=== PATIENT | female | born 1960 | race African-American/Black ===

== ENCOUNTER 2021-06-30 00:14 | Emergency (ER) | payer OTHER ==
[~2021-06-30] VITALS: Ht 167.6 cm; Wt 80.0 kg
[~2021-06-30 00:14] MED LIST: ASA; B/P MEDS
[2021-06-30] MEDS ORDERED: MORPHINE SULFATE 4 MG/ML CPJ (NOT FOR IM USE) IV STA (00:26)
[2021-06-30] MEDS ORDERED: ASPIRIN 81MG TABLET PO ONE (00:30)
[2021-06-30] MEDS: NITROGLYCERIN 0.4MG TABLET SL SL PRN ×3 (00:58→02:15)
[2021-06-30 01:27] LABS: CHLORIDE 110 mEq/L (98-107)
[2021-06-30 01:32] LABS: BASOPHILS % 0.4 % (0.0-2.0); EOSINOPHILS % 1.7 % (0.0-5.0); HEMATOCRIT. 40.9 % (36.0-48.0); HEMOGLOBIN. 13.1 g/dL (12.0-16.0); MEAN CORPUSCULAR HEMOGLOBIN 27.5 pg (28.0-32.0); MEAN CORPUSCULAR VOLUME 85.5 fL (81.0-99.0); MEAN PLATELET VOLUME 10.1 fl (7.4-10.4); MONOCYTES % 6.8 % (2.0-8.0); NEUTROPHILS % 68.1 % (40.0-76.0); PLATELET 169 x1000/uL (130-400); RED BLOOD CELL COUNT 4.78 mill/uL (4.2-5.4)
[2021-06-30] MEDS ORDERED: MORPHINE SULFATE 4 MG/ML CPJ (NOT FOR IM USE) IV ONE (02:30)
[2021-06-30 03:59] VITALS: BP 168/87
== END 2021-06-30 04:13 | disposition short-term general hospital (02) ==
LOC: ER 00:14
DX: R07.89 Other chest pain (principal); I11.0 Hypertensive heart disease with heart failure; I50.9 Heart failure, unspecified; Z88.0 Allergy status to penicillin; Z20.822 Contact with and (suspected) exposure to COVID-19
CPT/HCPCS: 36415; 71045; 80053; 83690; 83880; 84484; 85025; 87426; 96374; 96376; 99285; J2270

== ENCOUNTER 2021-07-22 14:40 | Inpatient (IN) | payer OTHER, MEDICAID ==
[~2021-07-22] VITALS: Ht 162.6 cm; Wt 73.5 kg
[2021-07-22] MEDS ORDERED: ONDANSETRON HCL 4MG/2ML INJ IV STA ×2 (14:46→17:48)
[2021-07-22] MEDS ORDERED: MORPHINE SULFATE 4 MG/ML CPJ (NOT FOR IM USE) IV STA ×2 (14:46→17:48)
[2021-07-22] MEDS ORDERED: HEPARIN 25,000 UNITS PREMIX 250 ML IV SCH (15:15)
[2021-07-22] MEDS ORDERED: HEPARIN 5000 UNITS/ML VIAL IV ONE (15:15)
[2021-07-22 15:38] LABS: BASOPHILS % 0.9 % (0.0-2.0); HEMATOCRIT. 32.1 % (36.0-48.0); HEMOGLOBIN. 10.4 g/dL (12.0-16.0); LYMPHOCYTES % 24.5 % (20.0-50.0); MEAN CORPUSCULAR HEMOGLOBIN 27.8 pg (28.0-32.0); MEAN CORPUSCULAR VOLUME 85.7 fL (81.0-99.0); MEAN PLATELET VOLUME 9.1 fl (7.4-10.4); MONOCYTES % 7.3 % (2.0-8.0); NEUTROPHILS % 64.3 % (40.0-76.0); PLATELET 411 x1000/uL (130-400); RED BLOOD CELL COUNT 3.75 mill/uL (4.2-5.4); RED CELL DISTRIBUTION WIDTH 15.4 % (11.6-14.6)
[2021-07-22 15:40] LABS: CHLORIDE 104 mEq/L (98-107)
[2021-07-22 15:47] LABS: INR 1.1; PARTIAL THROMBOPLASTIN TIME 23.1 sec (23.4-31.0); PROTHROMBIN TIME 11.4 sec (9.6-11.0)
[2021-07-22] MEDS ORDERED: FUROSEMIDE 20MG/2ML VIAL IVP ONE (16:00)
[2021-07-22] MEDS ORDERED: HEPARIN 5000 UNITS/ML VIAL IV PRN ×2 (16:30)
[2021-07-22] MEDS ORDERED: HEPARIN 5000 UNITS/ML VIAL IV SCH (16:30)
[2021-07-22] MEDS ORDERED: HEPARIN 25,000 UNITS PREMIX 250 ML IV PRN (16:30)
[2021-07-22] MEDS ORDERED: KETOROLAC 15MG/ML VIAL IV ONE (17:30)
[2021-07-22] MEDS ORDERED: ONDANSETRON HCL 4MG/2ML INJ IV PRN (20:15)
[2021-07-22] MEDS ORDERED: ACETAMINOPHEN 325MG TABLET PO PRN (20:15)
[2021-07-22] MEDS ORDERED: CLONIDINE 0.1MG TABLET PO PRN (20:15)
[2021-07-22] MEDS ORDERED: IPRATROPIUM/ALBUTEROL 0.5-3(2.5)MG/3ML NEB HHN PRN (20:15)
[2021-07-22] MEDS ORDERED: DOCUSATE SODIUM 100MG CAPSULE PO PRN (20:15)
[2021-07-22 21:30] VITALS: BP 136/79
[2021-07-22 22:30] VITALS: BP 146/78
[2021-07-22] MEDS: HYDROCODONE/ACETAMINOPHEN 5/325MG TABLET PO PRN (23:27)
[2021-07-22 23:30] VITALS: BP 145/78
[2021-07-23] VITALS (41 sets, daily range): BP systolic 97–157; BP diastolic 40–92
[2021-07-23] MEDS ORDERED: HEPARIN 25,000 UNITS PREMIX 250 ML IV SCH (00:45)
[2021-07-23 06:08] LABS: BASOPHILS % 0.9 % (0.0-2.0); EOSINOPHILS % 4.8 % (0.0-5.0); HEMATOCRIT. 32.3 % (36.0-48.0); HEMOGLOBIN. 10.5 g/dL (12.0-16.0); LYMPHOCYTES % 32.7 % (20.0-50.0); MEAN CORPUSCULAR VOLUME 85.5 fL (81.0-99.0); MEAN PLATELET VOLUME 9.1 fl (7.4-10.4); MONOCYTES % 10.6 % (2.0-8.0); PLATELET 313 x1000/uL (130-400); RED BLOOD CELL COUNT 3.77 mill/uL (4.2-5.4); RED CELL DISTRIBUTION WIDTH 14.7 % (11.6-14.6)
[2021-07-23 06:42] LABS: CHLORIDE 106 mEq/L (98-107)
[2021-07-23 06:56] LABS: PHOSPHORUS 4.3 mg/dL (2.5-4.9)
[2021-07-23 06:57] LABS: LDL CHOLESTEROL 72 mg/dL (5-100)
[2021-07-23 06:58] LABS: HDL CHOLESTEROL 34 mg/dL (40-59)
[2021-07-23 07:03] LABS: T4 FREE 0.97 ng/dL (0.76-1.46)
[2021-07-23] MEDS: OMEPRAZOLE 20MG CAPSULE EXTENDED RELEASE PO SCH (07:51)
[2021-07-23] MEDS: HYDROCODONE/ACETAMINOPHEN 5/325MG TABLET PO PRN ×3 (07:51→20:51)
[2021-07-23] MEDS ORDERED: MORPHINE SULFATE 2 MG/ML CPJ (NOT FOR IM USE) IV PRN (08:30)
[2021-07-23] MEDS ORDERED: NALOXONE HCL 0.4MG/ML VIAL IV PRN (08:45)
[2021-07-23] MEDS: ASPIRIN 81MG EC TABLET PO SCH (10:12)
[2021-07-23] MEDS: KETOROLAC 30MG/ML VIAL IV SCH ×2 (10:12→17:54)
[2021-07-23] MEDS: ENOXAPARIN 40MG/0.4ML SYR SUBCUT SCH (12:16)
[2021-07-23] MEDS ORDERED: FLUCONAZOLE 150MG TABLET PO NR (18:00)
[2021-07-23] MEDS: COLCHICINE 0.6MG TABLET PO SCH (20:46)
[2021-07-23] MEDS: ATORVASTATIN CALCIUM 40MG TABLET PO SCH (20:46)
[2021-07-23] MEDS: MAGNESIUM/ALUMINUM HYDROXIDE/SIMETHICONE 30ML UDC PO PRN ×2 (21:17→21:20)
[2021-07-24] VITALS (17 sets, daily range): BP systolic 124–157; BP diastolic 68–100
[2021-07-24] MEDS: KETOROLAC 30MG/ML VIAL IV SCH ×3 (01:35→18:08)
[2021-07-24] MEDS: HYDROCODONE/ACETAMINOPHEN 5/325MG TABLET PO PRN ×2 (05:09→20:31)
[2021-07-24 06:04] LABS: BASOPHILS % 0.7 % (0.0-2.0); EOSINOPHILS % 4.8 % (0.0-5.0); HEMATOCRIT. 32.8 % (36.0-48.0); HEMOGLOBIN. 10.4 g/dL (12.0-16.0); LYMPHOCYTES % 19.5 % (20.0-50.0); MEAN CORPUSCULAR HEMOGLOBIN 27.5 pg (28.0-32.0); MEAN CORPUSCULAR VOLUME 86.7 fL (81.0-99.0); MEAN PLATELET VOLUME 9.4 fl (7.4-10.4); MONOCYTES % 7.2 % (2.0-8.0); NEUTROPHILS % 67.8 % (40.0-76.0); PLATELET 303 x1000/uL (130-400); RED BLOOD CELL COUNT 3.79 mill/uL (4.2-5.4); RED CELL DISTRIBUTION WIDTH 15.1 % (11.6-14.6)
[2021-07-24 06:09] LABS: CHLORIDE 105 mEq/L (98-107)
[2021-07-24 06:16] LABS: PHOSPHORUS 3.7 mg/dL (2.5-4.9)
[2021-07-24] MEDS: OMEPRAZOLE 20MG CAPSULE EXTENDED RELEASE PO SCH (08:36)
[2021-07-24] MEDS: ASPIRIN 81MG EC TABLET PO SCH (08:36)
[2021-07-24] MEDS: COLCHICINE 0.6MG TABLET PO SCH ×2 (08:36→20:29)
[2021-07-24] MEDS: ENOXAPARIN 40MG/0.4ML SYR SUBCUT SCH (12:18)
[2021-07-24] MEDS ORDERED: LORA10TA7 PO (14:32)
[2021-07-24] MEDS ORDERED: HYDR-4001 PO (14:32)
[2021-07-24] MEDS ORDERED: CARV25TA47 PO (14:32)
[2021-07-24] MEDS ORDERED: CLOP75TA33 PO (14:32)
[2021-07-24] MEDS ORDERED: ASPI-1497 PO (14:32)
[2021-07-24] MEDS ORDERED: MULT-379 PO (14:32)
[2021-07-24] MEDS ORDERED: ZINC50CA2 PO (14:32)
[2021-07-24] MEDS ORDERED: EMPA10TA PO (14:32)
[2021-07-24] MEDS ORDERED: ROSU20TA2 PO (14:32)
[2021-07-24] MEDS ORDERED: CHOL100046 (14:32)
[2021-07-24] MEDS: ATORVASTATIN CALCIUM 40MG TABLET PO SCH (20:29)
[2021-07-25] VITALS (8 sets, daily range): BP systolic 127–159; BP diastolic 70–104
[2021-07-25] MEDS: OMEPRAZOLE 20MG CAPSULE EXTENDED RELEASE PO SCH (06:01)
[2021-07-25] MEDS: HYDROCODONE/ACETAMINOPHEN 5/325MG TABLET PO PRN ×2 (07:10→11:18)
[2021-07-25] MEDS ORDERED: OMEP20CA14 PO (08:59)
[2021-07-25] MEDS: COLCHICINE 0.6MG TABLET PO SCH (09:13)
[2021-07-25] MEDS: ASPIRIN 81MG EC TABLET PO SCH (09:14)
[2021-07-25] MEDS ORDERED: COLC0.6C3 MT (10:18)
[2021-07-25] MEDS: ENOXAPARIN 40MG/0.4ML SYR SUBCUT SCH (11:19)
== END 2021-07-25 15:25 | disposition home or self-care (01) | DRG 314 ==
LOC: ER 14:48 → UNDOADMIN 16:18 → CVICU 16:18 → EDBEDREQSVC 16:22 → EDBEDREQ 16:22 → EDBEDREQTM 16:22 → ENRESERV 19:03 → 3WST 07-24 10:08
PROVIDERS: ADMIT Internal Medicine; ATTEND Internal Medicine
DX: I24.1 Dressler's syndrome (principal); I50.33 Acute on chronic diastolic (congestive) heart failure; E44.0 Moderate protein-calorie malnutrition; I11.0 Hypertensive heart disease with heart failure; I25.10 Atherosclerotic heart disease of native coronary artery without angina pectoris; D64.9 Anemia, unspecified; E78.5 Hyperlipidemia, unspecified; Z20.822 Contact with and (suspected) exposure to COVID-19; R73.9 Hyperglycemia, unspecified; Z95.1 Presence of aortocoronary bypass graft; Z82.49 Family history of ischemic heart disease and other diseases of the circulatory system; Z88.0 Allergy status to penicillin; Z68.27 Body mass index [BMI] 27.0-27.9, adult
CPT/HCPCS: 36415; 71045; 80048; 80053; 80061; 80076; 83735; 83880; 84100; 84145; 84439; 84443; 84484; 85025; 87426; 93005; 93306; 93970; 99291; J1644; J1650; J1885; J1940; J2270; J2405

== ENCOUNTER 2021-08-23 23:56 | Emergency (ER) | payer OTHER, MEDICAID ==
[~2021-08-23] VITALS: Ht 167.6 cm; Wt 75.0 kg
[~2021-08-23 23:56] MED LIST changes: -ASA; +ASPI-1497 PO; -B/P MEDS; +CARV25TA47 PO; +CHOL100046; +CLOP75TA33 PO; +COLC0.6C3 MT; +EMPA10TA PO; +HYDR-4001 PO; +LORA10TA7 PO; +MULT-379 PO; +OMEP20CA14 PO; +ROSU20TA2 PO; +ZINC50CA2 PO
[2021-08-24] MEDS ORDERED: HYDROCODONE/ACETAMINOPHEN 5/325MG TABLET PO STA (00:23)
[2021-08-24 00:44] LABS: BASOPHILS % 0.9 % (0.0-2.0); EOSINOPHILS % 3.7 % (0.0-5.0); HEMATOCRIT. 38.2 % (36.0-48.0); HEMOGLOBIN. 12.5 g/dL (12.0-16.0); LYMPHOCYTES % 34.7 % (20.0-50.0); MEAN CORPUSCULAR HEMOGLOBIN 27.9 pg (28.0-32.0); MEAN CORPUSCULAR VOLUME 85.4 fL (81.0-99.0); MEAN PLATELET VOLUME 9.5 fl (7.4-10.4); MONOCYTES % 8.7 % (2.0-8.0); PLATELET 210 x1000/uL (130-400); RED BLOOD CELL COUNT 4.48 mill/uL (4.2-5.4)
[2021-08-24 00:53] LABS: CHLORIDE 110 mEq/L (98-107)
[2021-08-24 03:00] VITALS: BP 171/99
[2021-08-24] MEDS ORDERED: HYDR-4001 MT (03:11)
== END 2021-08-24 03:45 | disposition home or self-care (01) ==
LOC: ER 23:56
DX: R07.89 Other chest pain (principal); I10 Essential (primary) hypertension; I25.10 Atherosclerotic heart disease of native coronary artery without angina pectoris; Z95.1 Presence of aortocoronary bypass graft
CPT/HCPCS: 36415; 71045; 80053; 84484; 85025; 93005; 99285

== ENCOUNTER 2021-11-05 09:56 | Emergency (ER) | payer MEDICAID, OTHER ==
[~2021-11-05] VITALS: Ht 162.6 cm; Wt 77.0 kg
[~2021-11-05 09:56] MED LIST changes: +HYDR-4001 MT
[2021-11-05 10:02] VITALS: BP 168/93
== END 2021-11-05 11:21 | disposition left against medical advice (07) ==
LOC: ER 09:56 → CANBEDREQ 19:58
DX: R07.89 Other chest pain (principal)
CPT/HCPCS: 93005; 99283

== ENCOUNTER 2023-02-16 23:46 | Emergency (ER) | payer MEDICAID, OTHER ==
[~2023-02-16] VITALS: Ht 170.2 cm; Wt 82.0 kg
[2023-02-17 00:01] VITALS: O2SAT 100
[2023-02-17] MEDS ORDERED: MORPHINE SULFATE 4 MG/ML CPJ (NOT FOR IM USE) IV ONE ×2 (00:45→02:30)
[2023-02-17 00:53] LABS: EOSINOPHILS % 2.8 % (0.0-5.0); HEMATOCRIT. 42.4 % (36.0-48.0); HEMOGLOBIN. 14.2 g/dL (12.0-16.0); LYMPHOCYTES % 26.5 % (20.0-50.0); MEAN CORPUSCULAR HEMOGLOBIN 29.2 pg (28.0-32.0); MEAN CORPUSCULAR HGB CONC 33.4 g/dL (31.0-37.0); MEAN CORPUSCULAR VOLUME 87.2 fL (81.0-99.0); MEAN PLATELET VOLUME 10.2 fl (7.4-10.4); MONOCYTES % 7.6 % (2.0-8.0); NEUTROPHILS % 62.1 % (40.0-76.0); PLATELET 176 x1000/uL (130-400); RED BLOOD CELL COUNT 4.85 mill/uL (4.2-5.4); RED CELL DISTRIBUTION WIDTH 13.8 % (11.6-14.6); WHITE BLOOD COUNT 6.1 x1000/uL (4.5-11.0)
[2023-02-17 01:13] LABS: CHLORIDE 111 mEq/L (98-107); INDEX HEMOLYSI 3 (1-3); INDEX ICTERIC 1 (1-4); INDEX LIPEMIC 1 (1-3); POTASSIUM 3.3 mEq/L (3.5-5.1); SODIUM 143 mEq/L (136-145)
[2023-02-17 01:22] LABS: ALANINE AMINOTRANSFERASE 37 IU/L (13-61); ALBUMIN 3.5 g/dL (3.4-5.0); ASPARTATE AMINOTRANSFERASE 31 IU/L (15-37); BILIRUBIN TOTAL 0.3 mg/dL (0.1-1.0); CALCIUM 8.9 mg/dL (8.5-10.1); CARBON DIOXIDE 24 mEq/L (21-32); GLUCOSE 139 mg/dL (70-105); NT PRO B-TYPE NATRIURETIC PEP 166 pg/mL (5-125); PROTEIN TOTAL 7.5 g/dL (6.0-8.3); TROPONIN I HIGH SENSITIVITY 8 ng/L (<54); UREA NITROGEN BLOOD 16 mg/dL (7-21)
[2023-02-17] MEDS ORDERED: POTASSIUM CHLORIDE 20MEQ TABLET SR PO ONE (02:00)
[2023-02-17 03:10] LABS: TROPONIN I HIGH SENSITIVITY 8 ng/L (<54)
[2023-02-17 03:20] VITALS: BP 157/93; PULSE 81; RESP 19; TEMP 98.4
== END 2023-02-17 03:36 | disposition short-term general hospital (02) ==
LOC: ER 02-17 01:03 → CMPBEDREQ 02-17 21:52
DX: R07.9 Chest pain, unspecified (principal); I11.0 Hypertensive heart disease with heart failure; I50.9 Heart failure, unspecified; E11.9 Type 2 diabetes mellitus without complications; E78.00 Pure hypercholesterolemia, unspecified; Z98.890 Other specified postprocedural states; Z88.0 Allergy status to penicillin
CPT/HCPCS: 80053; 83880; 85025; 84484; 36415; 71045; 93005; 96374; 96376; 99285; J2270; Z7610 ×3

== ENCOUNTER 2023-08-09 01:51 | Emergency (ER) | payer MEDICAID ==
[~2023-08-09] VITALS: Ht 162.6 cm; Wt 78.0 kg
[2023-08-09 01:52] VITALS: O2SAT 100
[2023-08-09] MEDS: ONDANSETRON HCL 4MG/2ML INJ IV STA (03:31)
[2023-08-09 03:39] LABS: HEMOGLOBIN. 14.6 g/dL (12.0-16.0)
[2023-08-09 03:42] LABS: BASOPHILS % 0.5 % (0.0-2.0); EOSINOPHILS % 3.3 % (0.0-5.0); HEMATOCRIT. 43.2 % (36.0-48.0); LYMPHOCYTES % 27.3 % (20.0-50.0); MEAN CORPUSCULAR HEMOGLOBIN 29.5 pg (28.0-32.0); MEAN CORPUSCULAR HGB CONC 33.8 g/dL (31.0-37.0); MEAN CORPUSCULAR VOLUME 87.3 fL (81.0-99.0); MONOCYTES % 7.7 % (2.0-8.0); NEUTROPHILS % 61.2 % (40.0-76.0); PLATELET 207 x1000/uL (130-400); RED BLOOD CELL COUNT 4.95 mill/uL (4.2-5.4); RED CELL DISTRIBUTION WIDTH 14.3 % (11.6-14.6); WHITE BLOOD COUNT 5.1 x1000/uL (4.5-11.0)
[2023-08-09] MEDS: MAGNESIUM/ALUMINUM HYDROXIDE/SIMETHICONE 30ML UDC PO ONE (03:45)
[2023-08-09 03:56] LABS: ALANINE AMINOTRANSFERASE 24 IU/L (10-49); ALBUMIN 4.3 g/dL (3.2-4.8); ASPARTATE AMINOTRANSFERASE 25 IU/L (<34); BILIRUBIN TOTAL 0.4 mg/dL (0.1-1.0); CARBON DIOXIDE 25 mEq/L (21-32); CHLORIDE 106 mEq/L (98-107); CREATININE 0.8 mg/dL (0.6-1.0); GLUCOSE 191 mg/dL (70-105); POTASSIUM 3.6 mEq/L (3.5-5.1); PROTEIN TOTAL 7.1 g/dL (6.0-8.3); SODIUM 138 mEq/L (136-145); TROPONIN I HIGH SENSITIVITY 6 ng/L (3.0-34); UREA NITROGEN BLOOD 14 mg/dL (9-23)
[2023-08-09 04:01] LABS: ETHANOL BLOOD < 10 mg/dL (<10)
[2023-08-09 04:47] LABS: CLARITY URINE CLEAR (CLEAR); COLOR URINE YELLOW (YELLOW); GLUCOSE URINE 3+ (NEGATIVE); KETONES URINE NEGATIVE (NEGATIVE); LEUKOCYTE ESTERASE URINE NEGATIVE (NEGATIVE); NITRITE URINE NEGATIVE (NEGATIVE); OCCULT BLOOD URINE NEGATIVE (NEGATIVE); PROTEIN URINE 2+ (NEGATIVE); UROBILINOGEN URINE 0.2 E.U./dL (0.2-1.0)
[2023-08-09 05:08] LABS: *AMPHETAMINES SCREEN URINE NEGATIVE (NEGATIVE); *BARBITURATES SCREEN URINE NEGATIVE (NEGATIVE); *BENZODIAZEPINES SCREEN URINE NEGATIVE (NEGATIVE); *COCAINE SCREEN URINE NEGATIVE (NEGATIVE); CANNABINOID URINE SCREEN NEGATIVE (NEGATIVE); ECSTASY MDMA SCREEN URINE NEGATIVE (NEGATIVE); METHADONE URINE SCREEN Neg (NEGATIVE); OPIATES URINE SCREEN NEGATIVE (NEGATIVE); PHENCYCLIDINE URINE SCREEN NEGATIVE (NEGATIVE)
[2023-08-09] MEDS: VISCOUS LIDOCAINE 2% 15 ML UDC PO NR (05:21)
[2023-08-09 05:39] LABS: SQUAMOUS EPITHELIAL CELL URINE 1+ /lpf (RARE/1+)
[2023-08-09 05:42] LABS: RBC URINE 0-2 /hpf (0-2); WBC URINE 0-2 /hpf (0-2)
[2023-08-09 05:47] LABS: BACTERIA URINE TRACE
[2023-08-09 05:48] LABS: YEAST URINE FEW BUDDING YEASTS
[2023-08-09 07:23] LABS: TROPONIN I HIGH SENSITIVITY 5 ng/L (3.0-34)
[2023-08-09] MEDS: ASPIRIN 325MG EC TABLET PO ONE (08:55)
[2023-08-09] MEDS: MORPHINE SULFATE 4 MG/ML CPJ (NOT FOR IM USE) IV NR (09:31)
[2023-08-09] MEDS: HYDRALAZINE 20MG/ML VIAL IV ONE (11:02)
[2023-08-09 11:50] VITALS: BP 137/78; PULSE 80; RESP 17; TEMP 98.2
== END 2023-08-09 12:42 | disposition short-term general hospital (02) ==
LOC: ER 01:51 → CANBEDREQ 22:54
DX: R07.89 Other chest pain (principal); E78.00 Pure hypercholesterolemia, unspecified; I11.0 Hypertensive heart disease with heart failure; I50.9 Heart failure, unspecified; Z20.822 Contact with and (suspected) exposure to COVID-19; Z88.0 Allergy status to penicillin; Z79.899 Other long term (current) drug therapy; Z98.890 Other specified postprocedural states; Z79.82 Long term (current) use of aspirin; Z00.00 Encounter for general adult medical examination without abnormal findings
CPT/HCPCS: 80053; 80305; 81003; 80320; 83880; 83690; 85025; 84484; 36415; 71045; 93005; 96374; 96375; 99285; 87426; J0360; J2405; J2270; Z7610; G0480

== ENCOUNTER 2024-02-26 01:13 | Emergency (ER) | payer OTHER, MEDICARE, MEDICAID ==
[~2024-02-26] VITALS: Ht 162.6 cm; Wt 78.0 kg
[2024-02-26 01:15] VITALS: TEMP 98.3; O2SAT 97
[2024-02-26] MEDS: ONDANSETRON HCL 4MG/2ML INJ IV STA (02:09)
[2024-02-26] MEDS: MORPHINE SULFATE 4 MG/ML INJ (FOR IV/IM USE) IV STA (02:09)
[2024-02-26] MEDS: SODIUM CHLORIDE 0.9% 1,000 ML IV ONE (02:10)
[2024-02-26 02:11] LABS: BASOPHILS % 0.8 % (0.0-2.0); EOSINOPHILS % 5.8 % (0.0-5.0); HEMATOCRIT. 42.9 % (36.0-48.0); HEMOGLOBIN. 13.9 g/dL (12.0-16.0); LYMPHOCYTES % 24.2 % (20.0-50.0); MEAN CORPUSCULAR HEMOGLOBIN 28.5 pg (28.0-32.0); MEAN CORPUSCULAR HGB CONC 32.3 g/dL (31.0-37.0); MEAN CORPUSCULAR VOLUME 88.2 fL (81.0-99.0); MEAN PLATELET VOLUME 10.2 fl (7.4-10.4); MONOCYTES % 9.4 % (2.0-8.0); NEUTROPHILS % 59.8 % (40.0-76.0); PLATELET 193 x1000/uL (130-400); RED BLOOD CELL COUNT 4.86 mill/uL (4.2-5.4); RED CELL DISTRIBUTION WIDTH 14.4 % (11.6-14.6); WHITE BLOOD COUNT 5.5 x1000/uL (4.5-11.0)
[2024-02-26 02:23] LABS: CHLORIDE 104 mEq/L (98-107); POTASSIUM 3.6 mEq/L (3.5-5.1); SODIUM 136 mEq/L (136-145); TROPONIN I HIGH SENSITIVITY 4 ng/L (3.0-34)
[2024-02-26 02:24] LABS: CARBON DIOXIDE 25 mEq/L (21-32)
[2024-02-26 02:25] LABS: CALCIUM 9.2 mg/dL (8.7-10.4)
[2024-02-26 02:28] LABS: D-DIMER 1.22 mg/L FEU (<0.50); INR 0.9; PROTHROMBIN TIME 10.5 sec (9.6-11.0)
[2024-02-26 02:29] LABS: CREATININE 0.8 mg/dL (0.6-1.0); GLUCOSE 164 mg/dL (70-105)
[2024-02-26 02:30] LABS: UREA NITROGEN BLOOD 10 mg/dL (9-23)
[2024-02-26 04:10] LABS: TROPONIN I HIGH SENSITIVITY 4 ng/L (3.0-34)
[2024-02-26] MEDS ORDERED: IOHEXOL-350 100 ML BOTTLE ONE (04:53)
[2024-02-26] MEDS ORDERED: MORPHINE SULFATE 2 MG/ML INJ (NOT FOR IM USE) IV NR (05:15)
[2024-02-26 05:25] VITALS: BP 149/82; PULSE 81; RESP 17; O2SAT 100
== END 2024-02-26 05:51 | disposition left against medical advice (07) ==
LOC: ER 01:13
DX: C80.1 Malignant (primary) neoplasm, unspecified (principal); C78.01 Secondary malignant neoplasm of right lung; J90 Pleural effusion, not elsewhere classified; I11.0 Hypertensive heart disease with heart failure; I50.9 Heart failure, unspecified; E11.9 Type 2 diabetes mellitus without complications; E78.00 Pure hypercholesterolemia, unspecified; Z88.0 Allergy status to penicillin; Z79.899 Other long term (current) drug therapy; Z79.82 Long term (current) use of aspirin; Z98.890 Other specified postprocedural states
CPT/HCPCS: 80048; 83880; 85025; 85379; 85610; 84484; 36415; 71045; 71275; 93970; 93005; 96361; 96374; 96375; 99285; Q9967; J2405; J2270; J7030; Z7610 ×3

== ENCOUNTER 2024-04-24 18:36 | Emergency (ER) | payer OTHER, MEDICAID ==
[~2024-04-24] VITALS: Ht 162.6 cm; Wt 80.0 kg
[2024-04-24 18:38] VITALS: O2SAT 99
[2024-04-24 18:45] VITALS: TEMP 36.89184
[2024-04-24] MEDS: SODIUM CHLORIDE 0.9% 1,000 ML IV ONE (19:20)
[2024-04-24 20:18] LABS: HEMATOCRIT. 43.1 % (36.0-48.0); HEMOGLOBIN. 14.1 g/dL (12.0-16.0); MEAN CORPUSCULAR HEMOGLOBIN 28.8 pg (28.0-32.0); MEAN CORPUSCULAR HGB CONC 32.7 g/dL (31.0-37.0); MEAN CORPUSCULAR VOLUME 88.2 fL (81.0-99.0); MEAN PLATELET VOLUME 11.1 fl (7.4-10.4); PLATELET 133 x1000/uL (130-400); RED BLOOD CELL COUNT 4.89 mill/uL (4.2-5.4); RED CELL DISTRIBUTION WIDTH 15.5 % (11.6-14.6); WHITE BLOOD COUNT 7.9 x1000/uL (4.5-11.0)
[2024-04-24 20:19] LABS: DIFFERENTIAL COMMENT 1
[2024-04-24 20:26] LABS: CHLORIDE 104 mEq/L (98-107); POTASSIUM 5.2 mEq/L (3.5-5.1); SODIUM 136 mEq/L (136-145)
[2024-04-24 20:27] LABS: CALCIUM 8.8 mg/dL (8.7-10.4); CARBON DIOXIDE 25 mEq/L (21-32)
[2024-04-24 20:31] LABS: INR 0.9; PROTHROMBIN TIME 10.3 sec (9.6-11.0)
[2024-04-24 20:32] LABS: CREATININE 1.3 mg/dL (0.6-1.0); UREA NITROGEN BLOOD 27 mg/dL (9-23)
[2024-04-24 20:34] LABS: ALANINE AMINOTRANSFERASE 115 IU/L (10-49); ALBUMIN 3.9 g/dL (3.2-4.8); ASPARTATE AMINOTRANSFERASE 31 IU/L (<34); BILIRUBIN DIRECT 0.1 mg/dL (<=3.0); TROPONIN I HIGH SENSITIVITY 5 ng/L (3.0-34)
[2024-04-24 20:35] LABS: BILIRUBIN TOTAL 0.6 mg/dL (0.1-1.0); PROTEIN TOTAL 6.6 g/dL (6.0-8.3)
[2024-04-24 20:57] LABS: GLUCOSE 469 mg/dL (70-105)
[2024-04-24] MEDS: SODIUM CHLORIDE 0.9% 500 ML IV ONE (21:00)
[2024-04-24] MEDS: INSULIN REGULAR (HUMULIN R) 1000UNITS/10ML VIAL IV NR (21:00)
[2024-04-24 21:02] LABS: BETA HYDROXYBUTYRATE 0.2 mMol/L (0.0-0.3)
[2024-04-24] MEDS: AMLODIPINE 5MG TABLET PO NR (21:15)
[2024-04-24] MEDS: HYDROMORPHONE HCL/PF 2MG/ML INJ IV ONE (21:42)
[2024-04-24 22:00] LABS: PLATELET ESTIMATE NORMAL
[2024-04-24 23:19] LABS: TROPONIN I HIGH SENSITIVITY 6 ng/L (3.0-34)
[2024-04-24 23:37] LABS: CLARITY URINE CLEAR (CLEAR); COLOR URINE YELLOW (YELLOW); GLUCOSE URINE 3+ (NEGATIVE); KETONES URINE NEGATIVE (NEGATIVE); LEUKOCYTE ESTERASE URINE NEGATIVE (NEGATIVE); NITRITE URINE NEGATIVE (NEGATIVE); OCCULT BLOOD URINE NEGATIVE (NEGATIVE); PH URINE 5.5 (4.5-8.0); PROTEIN URINE TRACE (NEGATIVE); SPECIFIC GRAVITY URINE 1.029 (1.005-1.030); UROBILINOGEN URINE 0.2 E.U./dL (0.2-1.0)
[2024-04-25 00:38] LABS: RBC URINE NONE SEEN /hpf (0-2); SQUAMOUS EPITHELIAL CELL URINE FEW /lpf (RARE/1+); WBC URINE 0-2 /hpf (0-2)
[2024-04-25 00:40] LABS: BACTERIA URINE NONE SEEN
[2024-04-25 00:59] VITALS: BP 152/84; PULSE 66; RESP 12; O2SAT 97
== END 2024-04-25 00:59 | disposition home or self-care (01) ==
LOC: ER 18:36
DX: E11.65 Type 2 diabetes mellitus with hyperglycemia (principal); E86.0 Dehydration; N17.9 Acute kidney failure, unspecified; I13.0 Hypertensive heart and chronic kidney disease with heart failure and stage 1 through stage 4 chronic kidney disease, or unspecified chronic kidney disease; E11.22 Type 2 diabetes mellitus with diabetic chronic kidney disease; N18.9 Chronic kidney disease, unspecified; I50.9 Heart failure, unspecified; I25.10 Atherosclerotic heart disease of native coronary artery without angina pectoris; E78.00 Pure hypercholesterolemia, unspecified; Z95.1 Presence of aortocoronary bypass graft; Z88.0 Allergy status to penicillin; Z79.84 Long term (current) use of oral hypoglycemic drugs; Z79.82 Long term (current) use of aspirin; Z79.02 Long term (current) use of antithrombotics/antiplatelets
CPT/HCPCS: 99285; 96374; 70450; 96361; 71045; 96375; 80076; 80048; 81003; 82010; 82962; 83880; 83690; 85025; 85610; 86850; 86900; 86901; 84484; 36415; J1171; J7030; J1815

== ENCOUNTER 2024-09-13 13:46 | Inpatient (IN) | payer MEDICARE, OTHER, MEDICAID ==
[~2024-09-13] VITALS: Ht 162.6 cm; Wt 68.0 kg
[~2024-09-13 13:46] MED LIST changes: -ZINC50CA2 PO; +ZINC50CA5 PO
[2024-09-13] MEDS: MORPHINE SULFATE 4 MG/ML INJ (FOR IV/IM USE) IV ONE (14:49)
[2024-09-13] MEDS ORDERED: CEFEPIME 2GM IN DEXT 5% 100ML IV ONE (15:00)
[2024-09-13 15:56] LABS: BASOPHILS % 0.5 % (0.0-2.0); EOSINOPHILS % 0.4 % (0.0-5.0); HEMATOCRIT. 32.7 % (36.0-48.0); HEMOGLOBIN. 10.8 g/dL (12.0-16.0); LYMPHOCYTES % 11.2 % (20.0-50.0); MEAN CORPUSCULAR HEMOGLOBIN 28.5 pg (28.0-32.0); MEAN CORPUSCULAR HGB CONC 33.1 g/dL (31.0-37.0); MEAN CORPUSCULAR VOLUME 86.1 fL (81.0-99.0); NEUTROPHILS % 81.9 % (40.0-76.0); PLATELET 199 x1000/uL (130-400); RED CELL DISTRIBUTION WIDTH 24.1 % (11.6-14.6); WHITE BLOOD COUNT 7.4 x1000/uL (4.5-11.0)
[2024-09-13 16:00] LABS: ADD RBC MORPHOLOGY YES; DIFFERENTIAL COMMENT 1
[2024-09-13 16:08] LABS: CHLORIDE 97 mEq/L (98-107); POTASSIUM 6.1 mEq/L (3.5-5.1); SODIUM 135 mEq/L (136-145)
[2024-09-13 16:09] LABS: CALCIUM 7.9 mg/dL (8.7-10.4); CARBON DIOXIDE 32 mEq/L (21-32)
[2024-09-13 16:14] LABS: GLUCOSE 57 mg/dL (70-105); UREA NITROGEN BLOOD 6 mg/dL (9-23)
[2024-09-13 16:15] LABS: TROPONIN I HIGH SENSITIVITY 21 ng/L (3.0-34)
[2024-09-13 16:23] LABS: CREATININE 2.4 mg/dL (0.6-1.0)
[2024-09-13 16:28] LABS: PLATELET ESTIMATE NORMAL
[2024-09-13 16:29] LABS: ANISOCYTOSIS 2+
[2024-09-13] MEDS: VANCOMYCIN 1G PREMIX 200 ML IV ONE (16:35)
[2024-09-13] MEDS: CEFEPIME 2GM/50ML DUPLEX 50 ML IV NR (16:35)
[2024-09-13] MEDS: SODIUM CHLORIDE 0.9% 250 ML IV ONE ×2 (16:36→17:23)
[2024-09-13] MEDS ORDERED: CALCIUM GLUCONATE 1,000 MG in DEXT 5% WATER 100 ML IV ONE (16:45)
[2024-09-13 17:17] VITALS: PULSE 108; RESP 20; O2SAT 100
[2024-09-13] MEDS: ALBUTEROL (0.083%) 2.5MG/3ML NEB HHN SCH (17:17)
[2024-09-13] MEDS: INSULIN REGULAR (HUMULIN R) 1000UNITS/10ML VIAL IV ONE (17:22)
[2024-09-13] MEDS: DEXTROSE 50% WATER 50ML SYRINGE IV ONE (17:23)
[2024-09-13] MEDS: SODIUM BICARBONATE 8.4% 50MEQ/50ML SYR IV ONE (17:23)
[2024-09-13] MEDS: CALCIUM GLUCONATE 1GM PREMIX 50 ML IV NR (17:42)
[2024-09-13 18:33] VITALS: BP 95/71; PULSE 108; RESP 16; TEMP 37
[2024-09-13] MEDS ORDERED: ONDANSETRON HCL 4MG/2ML INJ IV PRN (19:00)
[2024-09-13] MEDS ORDERED: ACETAMINOPHEN 325MG TABLET PO PRN (19:00)
[2024-09-13] MEDS ORDERED: DOCUSATE SODIUM 100MG CAPSULE PO PRN (19:00)
[2024-09-13] MEDS ORDERED: IPRATROPIUM/ALBUTEROL 0.5-3(2.5)MG/3ML NEB HHN PRN (19:00)
[2024-09-13 20:00] VITALS: BP 97/40; PULSE 78; RESP 18; TEMP 37; O2SAT 99
[2024-09-13] MEDS: HYDROCODONE/ACETAMINOPHEN 5/325MG TABLET PO NR ×2 (20:30→21:45)
[2024-09-13] MEDS ORDERED: NALOXONE HCL 0.4MG/ML VIAL IV PRN (21:00)
[2024-09-13] MEDS ORDERED: HYDROCODONE/ACETAMINOPHEN 10/325MG TABLET PO PRN (21:00)
[2024-09-14] VITALS (16 sets, daily range): BP systolic 88–138; BP diastolic 60–105; PULSE 78–103; RESP 14–25; TEMP 36.1–36.8; O2SAT 96–100
[2024-09-14] MEDS ORDERED: GUAIFENESIN-DM 200MG-20MG/10ML UDC PO PRN (02:15)
[2024-09-14] MEDS: AZITHROMYCIN 500MG/250ML 250 ML IV SCH (03:44)
[2024-09-14] MEDS: HYDROCODONE/ACETAMINOPHEN 10/325MG TABLET PO PRN (04:23)
[2024-09-14] MEDS: IPRATROPIUM/ALBUTEROL 0.5-3(2.5)MG/3ML NEB HHN SCH (05:55)
[2024-09-14] MEDS: VANCOMYCIN HCL 1GM VIAL PO SCH (06:00)
[2024-09-14] MEDS: HYDROXYZINE 10MG TABLET PO PRN (08:37)
[2024-09-14 16:54] LABS: HEPATITIS B SURFACE ANTIGEN NEGATIVE (Negative)
[2024-09-14 17:15] LABS: HEPATITIS C AB NON REACTIVE (Neg) (Negative)
[2024-09-14] MEDS: VANCOMYCIN 125MG/2.5ML ORAL SYR PO SCH (17:22)
== END 2024-09-14 23:37 | disposition short-term general hospital (02) | DRG 947 ==
LOC: ER 13:46 → EDBEDREQTM 17:02 → EDBEDREQ 17:02 → 3WST 18:32
PROVIDERS: ADMIT Internal Medicine; ATTEND Internal Medicine
PROC: 5A1D70Z Performance of Urinary Filtration, Intermittent, Less than 6 Hours Per Day (ICD-10-PCS; principal; 2024-09-14)
DX: G89.3 Neoplasm related pain (acute) (chronic) (principal); J18.9 Pneumonia, unspecified organism; N18.6 End stage renal disease; I13.2 Hypertensive heart and chronic kidney disease with heart failure and with stage 5 chronic kidney disease, or end stage renal disease; C79.89 Secondary malignant neoplasm of other specified sites; C34.90 Malignant neoplasm of unspecified part of unspecified bronchus or lung; E11.22 Type 2 diabetes mellitus with diabetic chronic kidney disease; E78.00 Pure hypercholesterolemia, unspecified; R07.89 Other chest pain; E87.5 Hyperkalemia; I50.9 Heart failure, unspecified; Z88.0 Allergy status to penicillin; Z95.1 Presence of aortocoronary bypass graft; Z99.2 Dependence on renal dialysis
CPT/HCPCS: 36415; 71045; 80048; 83605; 83880; 84145; 84484; 85025; 86705; 87340; 90935; 93005; 94070; 94640; 94664; 99291; J0456; J0610; J0692; J1815; J2270; J3370; J3490; J7050; J7060

== ENCOUNTER 2024-10-20 14:38 | Inpatient (IN) | payer OTHER, MEDICARE, MEDICAID ==
[~2024-10-20] VITALS: Ht 162.6 cm; Wt 69.9 kg
[2024-10-20 14:42] VITALS: O2SAT 100
[2024-10-20 18:40] LABS: BASOPHILS % 0.5 % (0.0-2.0); EOSINOPHILS % 1.1 % (0.0-5.0); HEMATOCRIT. 31.8 % (36.0-48.0); HEMOGLOBIN. 10.3 g/dL (12.0-16.0); LYMPHOCYTES % 19.4 % (20.0-50.0); MEAN CORPUSCULAR HEMOGLOBIN 30.3 pg (28.0-32.0); MEAN CORPUSCULAR HGB CONC 32.4 g/dL (31.0-37.0); MEAN CORPUSCULAR VOLUME 93.4 fL (81.0-99.0); MONOCYTES % 13.6 % (2.0-8.0); NEUTROPHILS % 65.4 % (40.0-76.0); PLATELET 140 x1000/uL (130-400); WHITE BLOOD COUNT 3.2 x1000/uL (4.5-11.0)
[2024-10-20 18:41] LABS: ADD RBC MORPHOLOGY YES; DIFFERENTIAL COMMENT 1
[2024-10-20 18:49] LABS: CHLORIDE 100 mEq/L (98-107); POTASSIUM 2.9 mEq/L (3.5-5.1); SODIUM 141 mEq/L (136-145)
[2024-10-20 18:50] LABS: CALCIUM 7.7 mg/dL (8.7-10.4); CARBON DIOXIDE 31 mEq/L (21-32); PLATELET ESTIMATE NORMAL
[2024-10-20 18:51] LABS: ANISOCYTOSIS 3+
[2024-10-20 18:52] LABS: OVALOCYTES 1+
[2024-10-20 18:55] LABS: CREATININE 3.1 mg/dL (0.6-1.0); GLUCOSE 66 mg/dL (70-105); UREA NITROGEN BLOOD 10 mg/dL (9-23)
[2024-10-20 18:56] LABS: TROPONIN I HIGH SENSITIVITY 16 ng/L (3.0-34)
[2024-10-20] MEDS: LACTATED RINGERS 1,000 ML IV ONE ×2 (19:28→20:36)
[2024-10-20] MEDS: MAGNESIUM 2 G PREMIX 50 ML IV ONE (19:50)
[2024-10-20] MEDS: NOREPINEPHRINE 8MG/250ML PMX 250 ML IV ONE (20:45)
[2024-10-20] MEDS ORDERED: IPRATROPIUM/ALBUTEROL 0.5-3(2.5)MG/3ML NEB HHN PRN ×2 (21:45→22:15)
[2024-10-20] MEDS ORDERED: DOCUSATE SODIUM 100MG CAPSULE PO PRN (22:15)
[2024-10-20] MEDS ORDERED: ACETAMINOPHEN 325MG TABLET PO PRN (22:15)
[2024-10-20] MEDS ORDERED: MAGNESIUM/ALUMINUM HYDROXIDE/SIMETHICONE 30ML UDC PO PRN (22:15)
[2024-10-20] MEDS ORDERED: ONDANSETRON HCL 4MG/2ML INJ IV PRN (22:15)
[2024-10-20] MEDS ORDERED: GUAIFENESIN 200MG/10ML SUGAR FREE UDC PO PRN (22:15)
[2024-10-20] MEDS ORDERED: CLONIDINE 0.1MG TABLET PO PRN (22:15)
[2024-10-20] MEDS ORDERED: KCL 20MEQ/100ML PREMIX 100 ML IV SCH (22:30)
[2024-10-20] MEDS ORDERED: NALOXONE HCL 0.4MG/ML VIAL IV PRN (22:30)
[2024-10-20] MEDS ORDERED: ASPIRIN 81MG TABLET PO SCH (22:45)
[2024-10-20] MEDS: PANTOPRAZOLE SODIUM 40 MG/VIAL IV SCH (22:57)
[2024-10-21] VITALS (7 sets, daily range): BP systolic 109–112; BP diastolic 52–73; PULSE 80–108; RESP 12–18; TEMP 35.8–36.6; O2SAT 95–100
[2024-10-21] MEDS: KCL 20MEQ/100ML PREMIX 100 ML IV SCH ×2 (00:30→04:21)
[2024-10-21 01:05] LABS: BG BASE EXCESS 3.7 mmol/L (-2.0-3.0); BG CARBOXYHEMOGLOBIN 1.1 % (0.5-1.5); BG DEOXYHEMOGLOBIN 4.8 % (0.0-5.0); BG FRACTION INSPIRED OXYGEN 21; BG HCO3 ACT 27.3 mmol/L (21.0-28.0); BG METHEMOGLOBIN 0.3 % (0.5-1.5); BG OXYGEN SATURATION 95.1 % (94.0-98.0); BG OXYHEMOGLOBIN 93.8 % (94.0-98.0); BG PCO2 37.1 mmHg (32.0-45.0); BG PH 7.484 (7.350-7.450); BG PO2 70.6 mmHg (83.0-108.0); BG SAMPLE SITE RIGHT RADIAL; BG TOTAL HEMOGLOBIN 9.8 g/dL (12.0-16.0); BG VENT MODE ROOM AIR
[2024-10-21] MEDS: POTASSIUM CHLORIDE 20MEQ TABLET SR PO SCH (06:15)
[2024-10-21] MEDS: DEXTROSE 50% WATER 50ML SYRINGE IV PRN (06:23)
[2024-10-21] MEDS: BLOOD SUGAR DIAGNOSTIC STRIP TEST SCH (07:02)
[2024-10-21] MEDS: INSULIN LISPRO 100 UNITS/ML SUBCUT SCH (07:03)
[2024-10-21] MEDS: CLOPIDOGREL 75MG TABLET PO SCH (08:39)
[2024-10-21] MEDS: ASPIRIN 81MG TABLET PO SCH (08:39)
[2024-10-21] MEDS: ENOXAPARIN 30MG/0.3ML SYR SUBCUT SCH (08:55)
[2024-10-21 09:07] LABS: CARBON DIOXIDE 25 mEq/L (21-32); CHLORIDE 104 mEq/L (98-107); POTASSIUM 4.2 mEq/L (3.5-5.1); SODIUM 137 mEq/L (136-145)
[2024-10-21 09:08] LABS: CALCIUM 7.8 mg/dL (8.7-10.4)
[2024-10-21 09:13] LABS: CREATININE 3.2 mg/dL (0.6-1.0); GLUCOSE 103 mg/dL (70-105); TRIGLYCERIDE 132 mg/dL (0-150); UREA NITROGEN BLOOD 9 mg/dL (9-23)
[2024-10-21 09:14] LABS: LDL CHOLESTEROL 58 mg/dL (5-100)
[2024-10-21] MEDS: EMPAGLIFLOZIN 10MG TABLET PO SCH (09:14)
[2024-10-21 09:15] LABS: HDL CHOLESTEROL 44 mg/dL (>65); PHOSPHORUS 1.7 mg/dL (2.5-4.9)
[2024-10-21 09:17] LABS: T4 FREE 1.25 ng/dL (0.89-1.76); THYROID STIMULATING HORMONE 4.42 uIU/mL (0.55-4.78)
[2024-10-21 10:05] LABS: CHOLESTEROL 147 mg/dL (<200)
[2024-10-21] MEDS: HYDROCODONE/ACETAMINOPHEN 10/325MG TABLET PO PRN (11:00)
== END 2024-10-21 21:27 | disposition short-term general hospital (02) | DRG 871 ==
LOC: ER 14:38 → 5WST 20:46 → EDBEDREQTM 20:48 → EDBEDREQSVC 20:48 → EDBEDREQTM 22:19 → EDBEDREQSVC 22:19 → ENRESERV 22:38
PROVIDERS: ADMIT Hospitalist; ATTEND Hospitalist
DX: A41.9 Sepsis, unspecified organism (principal); J96.01 Acute respiratory failure with hypoxia; N18.6 End stage renal disease; I13.2 Hypertensive heart and chronic kidney disease with heart failure and with stage 5 chronic kidney disease, or end stage renal disease; C79.51 Secondary malignant neoplasm of bone; G93.40 Encephalopathy, unspecified; N17.9 Acute kidney failure, unspecified; I50.9 Heart failure, unspecified; E86.0 Dehydration; E11.22 Type 2 diabetes mellitus with diabetic chronic kidney disease; E87.6 Hypokalemia; E83.42 Hypomagnesemia; E83.51 Hypocalcemia; E11.649 Type 2 diabetes mellitus with hypoglycemia without coma; I25.10 Atherosclerotic heart disease of native coronary artery without angina pectoris; D63.1 Anemia in chronic kidney disease; G89.29 Other chronic pain; E78.5 Hyperlipidemia, unspecified; I95.3 Hypotension of hemodialysis; E83.39 Other disorders of phosphorus metabolism; Z99.2 Dependence on renal dialysis; Z85.118 Personal history of other malignant neoplasm of bronchus and lung; Z95.1 Presence of aortocoronary bypass graft; Z79.02 Long term (current) use of antithrombotics/antiplatelets; Z79.4 Long term (current) use of insulin; Z79.60 Long term (current) use of unspecified immunomodulators and immunosuppressants; Z79.82 Long term (current) use of aspirin; Z79.84 Long term (current) use of oral hypoglycemic drugs; Z79.899 Other long term (current) drug therapy; Z86.73 Personal history of transient ischemic attack (TIA), and cerebral infarction without residual deficits; Z88.0 Allergy status to penicillin; Z92.3 Personal history of irradiation
CPT/HCPCS: 36415; 36600; 71045; 76604; 80048; 80061; 82375; 82805; 82962; 83036; 83735; 83880; 84100; 84439; 84443; 84484; 85025; 93005; 96361; 96365; 99291; J1650; J1815; J2470; J3475; J3480; J3490; J7120